=== PATIENT | male | born 1945 ===

== ENCOUNTER 2018-10-16 13:03 | Inpatient (IN) | payer MEDICARE ==
[2018-10-16 13:03] VITALS: BMI 28.3
[2018-10-16] MEDS ORDERED: Albuterol-Ipratrop 3 mg / 0.5 (3 ml) UD IH STA ×2 (13:24→15:02)
--- NOTE | 2018-10-16 13:27 | ED PDOC ---
HPI: CCC, URI, Sore Throat Time Seen by Provider: 10/16/18 13:14 Chief Complaint (Nursing): Chest Pain History Per: Family Onset/Duration Of Symptoms: Days (2) Current Symptoms Are (Timing): Still Present Sick Contacts (Context): None Associated Symptoms: Chills, Cough, Sputum Severity: Moderate Additional Complaint(s): Cough productive yellow sputum since . Exposed to cooking smoke at home which worsened respiratory status. Mild improvement with nebulizer at home. Admits to chills but denies fever. Chest pain when coughing. Past Medical History - Medical History PMH: Asthma, CHF, COPD, Diabetes, Diverticulitis, Emphysema, HTN, Kidney Stones, Peripheral Edema, Chronic Kidney Disease - Surgical History Surgical History: Coronary Stent (X2 PER DAUGHTER) - Family History Family History: States: Unknown Family Hx - Immunization History Hx Tetanus Toxoid Vaccination: No Hx Influenza Vaccination: No Hx Pneumococcal Vaccination: No - Home Medications Home Medications: Ambulatory Orders Medication Instructions Recorded Omeprazole [Prilosec] 1 tab PO DAILY 11/25/15 Albuterol 0.083% [Albuterol 0.083% 01/03/16 Inhal Stephy (2.5 mg/3 ml) UD] Clotrimazole 1% Cream [Lotrimin 1%] 1 applic EXT BID #1 tube 06/17/18 Albuterol HFA [Ventolin HFA 90 2 puff IH [id number] #1 inhaler 09/09/18 mcg/actuation (8 g)] Aspirin [Ecotrin] 1 tab PO DAILY #30 tabec 09/09/18 Gabapentin [Neurontin] 300 mg PO BID #60 cap 09/09/18 Glimepiride [amaRYL] 1 tab PO DAILY #30 tab 09/09/18 Lisinopril [Zestril] 5 mg PO DAILY #30 tab 09/09/18 Methylprednisolone [Medrol Dose See Taper PO DAILY #21 mg 09/09/18 Pack (21 tabs)] SITagliptin [Januvia] 1 tab PO DAILY #30 tab 09/09/18 Simvastatin 20 mg PO DAILY #30 tablet 09/09/18 - Allergies Allergies/Adverse Reactions: Allergies Allergy/AdvReac Type Severity Reaction Status Date / Time No Known Allergies Allergy Verified 09/06/18 18:34 Review of Systems ROS Statement: Except As Marked, All Systems Reviewed And Found Negative Constitutional: Positive for: Chills Cardiovascular: Positive for: Chest Pain Respiratory: Positive for: Cough, Shortness of Breath Neurological: Positive for: Weakness Physical Exam - Reviewed Nursing Documentation Reviewed: Yes Vital Signs Reviewed: Yes - Physical Exam Appears: Positive for: Non-toxic, No Acute Distress Head Exam: Positive for: ATRAUMATIC, NORMAL INSPECTION, NORMOCEPHALIC Skin: Positive for: Normal Color, Warm, DRY Eye Exam: Positive for: EOMI, Normal appearance, PERRL ENT: Positive for: Normal ENT Inspection Neck: Positive for: Normal, Painless ROM Cardiovascular/Chest: Positive for: Regular Rate, Rhythm Respiratory: Positive for: Rhonchi, Wheezing. Negative for: Respiratory Distress Gastrointestinal/Abdominal: Positive for: Normal Exam, Soft Back: Positive for: Normal Inspection Extremity: Positive for: Normal ROM. Negative for: Swelling Neurologic/Psych: Positive for: Alert, Oriented - Laboratory Results Result Diagrams: 10/16/18 13:50 10/16/18 13:50 Disposition - Clinical Impression Clinical Impression: COPD exacerbation, EKG abnormalities - Patient ED Disposition Is Patient to be Admitted: Yes - Disposition Disposition Time: 15:51 Condition: FAIR Forms: [employer] (Congolese) - Pt Status Changed To: Hospital Disposition Of: Inpatient - Admit Certification Admit to Inpatient:: After my assessment, the patient will require hospitalization for at least two midnights. This is because of the severity of symptoms shown, intensity of services needed, and/or the medical risk in this patient being treated as an outpatient. - POA Present On Arrival: None
[2018-10-16] MEDS ORDERED: Albuterol-Ipratrop 3 mg / 0.5 (3 ml) UD ONE ×2 (13:42→15:51)
[2018-10-16 13:55] LABS: BASO # 0.1 K/uL (0.0-0.2); BASO % 0.5 % (0.0-2.0); EOS # 0.2 K/uL (0.0-0.7); EOS % 1.2 % (0.0-4.0); HEMOGLOBIN 15.5 g/dL (12.0-18.0); LYMPH # 1.2 K/uL (1.0-4.3); LYMPH % 8.9 % (20.0-40.0); MEAN CELL VOLUME 87.9 fl (80.0-94.0); MEAN CORPUSCULAR HEMOGLOBIN 29.1 pg (27.0-31.0); MEAN CORPUSCULAR HGB CONC 33.1 g/dL (33.0-37.0); MEAN PLATELET VOLUME 7.7 fl (7.2-11.7); MONO # 0.5 K/uL (0.0-0.8); MONO % 3.7 % (0.0-10.0); NEUT # 11.8 K/uL (1.8-7.0); NEUT % 85.7 % (50.0-75.0); NRBC % 0.1 % (0.0-0.0); PLATELET COUNT 220 K/uL (130-400); RBC 5.34 Mil/uL (4.40-5.90); RED CELL DISTRIBUTION WIDTH 16.8 % (11.5-14.5); WHITE BLOOD COUNT 13.8 K/uL (4.8-10.8)
[2018-10-16 14:06] LABS: ALB/GLOB RATIO 1.3 (1.0-2.1); ALT/SGPT 24 U/L (21-72); AST/SGOT 24 U/L (17-59); BLOOD UREA NITROGEN 12 mg/dl (9-20); CALCIUM 9.1 mg/dL (8.4-10.2); GFR NON-AFRICAN AMERICAN > 60
[2018-10-16 14:29] LABS: LYMPHOCYTE 6 % (20-50); MONOCYTE 4 % (0-10); NEUTROPHIL 90 % (42-75); PLATELET ESTIMATE NORMAL (NORMAL); TOTAL CELLS COUNTED 100
[2018-10-16 14:30] LABS: ANISOCYTOSIS SLIGHT; OVALOCYTES SLIGHT
--- NOTE | 2018-10-16 14:51 | RAD ---
Date of service: 10/16/2018 HISTORY: Cough COMPARISON: The TECHNIQUE: Chest PA and lateral FINDINGS: LUNGS: No active pulmonary disease. PLEURA: No significant pleural effusion identified. No pneumothorax apparent. CARDIOVASCULAR: No aortic atherosclerotic calcification present. Normal cardiac size. No pulmonary vascular congestion. OSSEOUS STRUCTURES: Mild scoliotic deformities lower thoracic spine convex right possibly compensatory for levoscoliosis of the lumbar region. VISUALIZED UPPER ABDOMEN: Normal. OTHER FINDINGS: None. IMPRESSION: No active disease.
[2018-10-16] MEDS: Albuterol HFA 90 mcg/actuation (8 g) IH SCH (22:51)
[2018-10-16] MEDS: Insulin Regular 100 units/ml SC SCH (22:58)
[2018-10-16] MEDS: levoFLOXacin 500 mg in D5W 500 MG/100 ML BAG IVPB SCH (23:01)
--- NOTE | 2018-10-16 23:17 | CARD ---
APPROVED REPORT Date of service: 10/16/2018 EKG Measurement Heart [id number] <Conclusion> Normal sinus rhythm Inferior infarct, age undetermined Abnormal ECG
[2018-10-17] MEDS: MethylPREDNISolone 40 mg Vial IVP SCH ×3 (00:32→16:36)
[2018-10-17] MEDS ORDERED: methylPREDNISolone 20 MG in Sodium Chloride 0.9% 50 ML IVP SCH (01:00)
[2018-10-17] MEDS: Albuterol-Ipratrop 3 mg / 0.5 (3 ml) UD INH SCH ×4 (01:01→19:28)
[2018-10-17] MEDS: Albuterol HFA 90 mcg/actuation (8 g) IH SCH ×4 (02:00→20:43)
[2018-10-17] MEDS: Insulin Regular 100 units/ml SC SCH ×4 (06:43→21:50)
[2018-10-17] MEDS: Pantoprazole 20 mg EC Tab PO SCH (08:27)
[2018-10-17] MEDS: GlipiZIDE 5 mg SR Tab PO SCH (08:28)
--- NOTE | 2018-10-17 09:57 | CARD ---
APPROVED REPORT Date of service: 10/16/2018 EKG Measurement Heart [id number] <Conclusion> Normal sinus rhythm Left anterior fascicular block Nonspecific ST and T wave abnormality, consider lateral wall ischemia Abnormal ECG
--- NOTE | 2018-10-17 18:28 | CT ---
Date of service: 10/17/2018 PROCEDURE: CT HEAD WITHOUT CONTRAST. HISTORY: stroke COMPARISON: None available. TECHNIQUE: Axial computed tomography images were obtained through the head/brain without intravenous contrast. Radiation dose: Total exam DLP = 828.45 mGy-cm. This CT exam was performed using one or more of the following dose reduction techniques: Automated exposure control, adjustment of the mA and/or kV according to patient size, and/or use of iterative reconstruction technique. FINDINGS: HEMORRHAGE: No intracranial hemorrhage. BRAIN: No mass effect or edema. No atrophy or chronic microvascular ischemic changes. VENTRICLES: Unremarkable. No hydrocephalus. CALVARIUM: Unremarkable. PARANASAL SINUSES: Unremarkable as visualized. No significant inflammatory changes. MASTOID AIR CELLS: Unremarkable as visualized. No inflammatory changes. OTHER FINDINGS: None. IMPRESSION: No evidence of acute intracranial hemorrhage or territorial infarction.
--- NOTE | 2018-10-17 19:29 | MRI ---
Date of service: 10/17/2018 PROCEDURE: MR LUMBAR SPINE WITHOUT CONTRAST HISTORY: right leg weakness COMPARISON: None available. TECHNIQUE: Multiecho multiplanar sequences were performed through the lumbar spine without the use of intravenous contrast. FINDINGS: Normal lumbar lordosis. Vertebral body heights are preserved. Marrow signal unremarkable. Conus medullaris unremarkable at the level of T12 Paraspinal soft tissues are unremarkable. T12-L1: No disc herniation, spinal canal stenosis or neural foraminal narrowing. L1-2: No disc herniation, spinal canal stenosis or neural foraminal narrowing. L2-3: No disc herniation, spinal canal stenosis or neural foraminal narrowing. L3-4: No disc herniation, spinal canal stenosis or neural foraminal narrowing. L4-5: Mild degenerative disc changes are noted. There is a small posterior disc bulge seen associated with posterior ligament hypertrophy without evidence of significant spinal or neural foramina narrowing. L5-S1: Mild degenerative disc changes are also noted. Small broad-based disc bulge seen at L5-S1 without evidence of significant spinal or neural foraminal narrowing. OTHER FINDINGS: There is partially imaged large hyperintense T2 signal cyst in the left kidney. There is a infrarenal abdominal aortic aneurysm measures 4 centimeter IMPRESSION: Mild degenerative disc changes at L4-L5 and L5-S1 associated with small posterior disc bulge without evidence of significant spinal or neural foraminal narrowing. Infrarenal abdominal aortic aneurysm measures 4 centimeter.
[2018-10-17] MEDS: levoFLOXacin 500 mg in D5W 500 MG/100 ML BAG IVPB SCH (22:03)
[2018-10-18] MEDS: Albuterol-Ipratrop 3 mg / 0.5 (3 ml) UD INH SCH ×3 (01:00→13:20)
[2018-10-18] MEDS: Albuterol HFA 90 mcg/actuation (8 g) IH SCH ×3 (02:00→14:24)
--- NOTE | 2018-10-18 04:20 | HP ---
HISTORY OF PRESENT ILLNESS: This is a 73-year-old male with history of obstructive lung disease, on bronchodilator therapy at home. The patient presented to emergency room as he started to feel chest tightness and also he stated that he was feeling right lower extremity weakness. The patient was evaluated in emergency room and he was given bronchodilators and antibiotics as well as steroids and admitted for further management. REVIEW OF SYSTEMS: Other review of systems is again positive for right lower extremity weakness. PAST MEDICAL HISTORY: Hypercholesterolemia, type 2 diabetes mellitus, hypertension, and COPD. SOCIAL HISTORY: Ex-smoker. No EtOH or substance abuse. FAMILY HISTORY: Not contributory. MEDICATIONS: Reviewed and ordered. PHYSICAL EXAMINATION: GENERAL: The patient is in bed, not in any cardiopulmonary distress. VITAL SIGNS: Blood pressure 147/78, temperature 98.4, respiratory rate 18, and pulse 101. HEENT: Pupils are equal and reactive to light. Normal-appearing mucosa of the conjunctivae, oropharynx, and nasal membrane mucosa. NECK: Supple. No JVD. No carotid bruit. No lymph node. No thyromegaly. CHEST AND LUNGS: Bilateral symmetrical expansion. Good air exchange. No rales, no rhonchi. CARDIOVASCULAR: PMI not localized. S1, S2. No additional sounds. ABDOMEN: Normoactive bowel sounds. No tenderness. No organomegaly. No masses. EXTREMITIES: No cyanosis, no clubbing, no edema. CENTRAL NERVOUS SYSTEM: Alert, awake, and oriented x2. No neurological deficit could be appreciated except for right lower extremity weakness with muscle power of 2-3/5 compared to 5/5 on the left lower extremity. ASSESSMENT: 1. Mild exacerbation of chronic obstructive pulmonary disease. 2. Right lower extremity weakness, rule out radiculopathy versus neuropathy. 3. Type 2 diabetes mellitus. 4. Hypertension. PLAN: Neuro consult. We will continue the bronchodilators, Accu-Cheks with insulin coverage, and physical therapy. Roland Altman MD
[2018-10-18 04:43] VITALS: RESP 18
[2018-10-18] MEDS: Insulin Regular 100 units/ml SC SCH ×3 (07:30→16:25)
[2018-10-18] MEDS: GlipiZIDE 5 mg SR Tab PO SCH (09:00)
[2018-10-18] MEDS: Pantoprazole 20 mg EC Tab PO SCH (09:04)
[2018-10-18 16:27] VITALS: PULSE 77; TEMP 98.6; O2SAT 98
--- NOTE | 2018-10-18 17:06 | CP.PCM.CON ---
History of Present Illness - History of Present Illness History of Present Illness: 73 yr old male who was brought in for chest pain and sob, with pmh of hypercholesterolemia, htn, and developed right leg pain with weakness. On examination, patient has severe pain in his right leg, upon straight leg raising test, presenting as weakness. He says this has been present for several days. THere is no numbness, no tingling, no aphasia, no headache, no upper limb finding. No history of trauma or injury. ROS: significant for pain. PMH: Asthma, CHF, COPD, Diabetes, Diverticulitis, Emphysema, HTN, Kidney Stones, Peripheral Edema, Chronic Kidney Disease - Surgical History Surgical History: Coronary Stent (X2 PER DAUGHTER) - Family History Family History: States: Unknown Family Hx. No etoh, no tobacco. On exam: AAOX3. PERRL. CN 2-12 normal. Speech fluent. Motor; normal except for right leg which is 3/5, limited by pain. Sensory: normal, no deficits. Gait: not tested. +2 dtr ul and ll bl. Toes downgoing. No clonus. Past Patient History - Past Medical History & Family History Past Medical History?: Yes - Past Social History Smoking Status: Former Smoker - CARDIAC Hx Cardiac Disorders: Yes - PULMONARY Hx Respiratory Disorders: Yes - NEUROLOGICAL Hx Neurological Disorder: No - HEENT Hx HEENT Problems: No - RENAL Hx Chronic Kidney Disease: Yes - ENDOCRINE/METABOLIC Hx Endocrine Disorders: Yes - HEMATOLOGICAL/ONCOLOGICAL Hx Blood Disorders: No - INTEGUMENTARY Hx Dermatological Problems: No - MUSCULOSKELETAL/RHEUMATOLOGICAL Hx Musculoskeletal Disorders: No Hx Falls: Yes - GASTROINTESTINAL Hx Diverticulitis: Yes - GENITOURINARY/GYNECOLOGICAL Hx Genitourinary Disorders: No - PSYCHIATRIC Hx Psychophysiologic Disorder: No Hx Substance Use: No - SURGICAL HISTORY Hx Coronary Stent: Yes (X2 PER DAUGHTER) - ANESTHESIA Hx Anesthesia: Yes Hx Anesthesia Reactions: No Hx Malignant Hyperthermia: No Meds Home Medications: Home Medication List Medication Instructions Recorded Confirmed Type Gabapentin [Neurontin] 600 mg PO HS tab 10/18/18 Rx Allergies/Adverse Reactions: Allergies Allergy/AdvReac Type Severity Reaction Status Date / Time No Known Allergies Allergy Verified 09/06/18 18:34 - Medications Medications: Current Medications Albuterol (Ventolin Hfa 90 Mcg/Actuation (8 G)) 2 puff IH RQ6 PETER Last Admin: 10/18/18 14:24 Dose: 2 puff Albuterol/Ipratropium (Duoneb 3 Mg/0.5 Mg (3 Ml) Ud) 3 ml INH RQ6 [facility] Last Admin: 10/18/18 13:20 Dose: 3 ml Aspirin (Ecotrin) 81 mg PO DAILY [facility] Last Admin: 10/18/18 09:00 Dose: 81 mg Atorvastatin Calcium (Lipitor) 10 mg PO DAILY [facility] Last Admin: 10/18/18 09:03 Dose: 10 mg Gabapentin (Neurontin) 600 mg PO [facility] Glipizide (Glucotrol Xl) 5 mg PO DAILY [facility] Last Admin: 10/18/18 09:00 Dose: 5 mg Heparin Sodium (Porcine) (Heparin) 5,000 units SC Q12 [facility]; Protocol Last Admin: 10/18/18 09:00 Dose: 5,000 units Levofloxacin/Dextrose (Levaquin 500mg) 500 mg in 100 mls @ 100 mls/hr IVPB DAILY@2300 [facility]; Protocol Last Admin: 10/17/18 22:03 Dose: 100 mls/hr Insulin Human Regular (Humulin R) 0 units SC ACHS [facility]; Protocol Last Admin: 10/18/18 16:25 Dose: Not Given Lisinopril (Zestril) 5 mg PO DAILY [facility] Last Admin: 10/18/18 09:04 Dose: 5 mg Pantoprazole Sodium (Protonix Ec Tab) 20 mg PO DAILY [facility] Last Admin: 10/18/18 09:04 Dose: 20 mg Sitagliptin Phosphate (Januvia) 100 mg PO DAILY [facility] Last Admin: 10/18/18 09:03 Dose: 100 mg Results - Vital Signs Recent Vital Signs: Last Vital Signs Temp 98.6 F 10/18/18 16:26 Pulse 77 10/18/18 16:26 Resp 18 10/18/18 16:26 BP 137/66 10/18/18 16:26 Pulse Ox 98 10/18/18 16:26 - Labs Result Diagrams: 10/16/18 13:50 10/16/18 13:50 Labs: Laboratory Results - last 24 hr 10/17/18 10/18/18 10/18/18 21:47 05:34 12:04 POC Glucose (mg/dL) 167 H 125 H 131 H 10/18/18 15:51 POC Glucose (mg/dL) 90 Assessment & Plan - Assessment and Plan (Free Text) Assessment: CT head: atrophy frontal regions. MRI l s spine: shows midl djd, and L5 S1 broad based disc.with a 4 mm abdominal aortic aneurysm. A/P: 73 yr old male with mild djd and lumbar radiculopathy who has severe pain in his right leg which is limiting his movement. PLan: 1. Outpatient rehab 2. [facility] neurontin 600 mg po daily. Thank you Dr. Crouch
[2018-10-18 18:35] VITALS: BP 167/82
--- NOTE | 2018-10-19 20:40 | DS ---
The patient is seen today, 10/18/2018. REASON FOR ADMISSION This is a 73-year-old male, ex-smoker, who has history of COPD who was admitted for chest tightness and what was felt to be exacerbation of COPD. The patient also was complaining of right-sided lower extremity weakness. COURSE OF HOSPITALIZATION: The patient was admitted to telemetry floor, and he was started on steroids and bronchodilators that quickly resolved his symptoms. The patient continued to complain of right-sided weakness for which MRI of the lumbosacral spine and Neurology consult was done, and it was believed to be due to degenerative spine disease with radiculopathy. Gabapentin also was ordered by Neurology, and the patient was discharged to subacute rehabilitation. FINAL DIAGNOSES: Degenerative spine disease with radiculopathy, chronic obstructive pulmonary disease exacerbation, smoker, hypercholesterolemia. [facility] Altman MD
== END 2018-10-18 18:15 | DRG 192 ==
LOC: H.ER 13:03 → H.ERHOLD 15:50 → H.TEL 19:55
PROVIDERS: ADMIT Internal Medicine; ATTEND Internal Medicine
PROC: 3E0F73Z Introduction of Anti-inflammatory into Respiratory Tract, Via Natural or Artificial Opening (ICD-10-PCS; principal; 2018-10-16)
DX: J44.1 Chronic obstructive pulmonary disease with (acute) exacerbation (principal); R94.31 Abnormal electrocardiogram [ECG] [EKG]; I10 Essential (primary) hypertension; E11.8 Type 2 diabetes mellitus with unspecified complications; M54.16 Radiculopathy, lumbar region; E78.00 Pure hypercholesterolemia, unspecified; Z95.5 Presence of coronary angioplasty implant and graft; Z79.84 Long term (current) use of oral hypoglycemic drugs; Z87.891 Personal history of nicotine dependence; Z87.442 Personal history of urinary calculi; Z79.82 Long term (current) use of aspirin